=== PATIENT | male | born 1960 | race Caucasian/White ===

== ENCOUNTER 2021-01-14 08:48 | Emergency (ER) | payer OTHER ==
[~2021-01-14] VITALS: Ht 175.3 cm; Wt 81.8 kg
[2021-01-14] MEDS ORDERED: AMLO10TA55 PO (08:53)
[2021-01-14] MEDS ORDERED: FLUO-176 PO (08:53)
[2021-01-14] MEDS ORDERED: LAMO200T10 PO (08:53)
[2021-01-14] MEDS ORDERED: CHOL200016 PO (08:53)
[2021-01-14] MEDS ORDERED: FLUO20CA36 PO (08:53)
[2021-01-14 09:01] VITALS: BP 112/80
[2021-01-14] MEDS ORDERED: DOXYCYCLINE HYCLATE 100 MG TABLET PO ONE (10:30)
[2021-01-14] MEDS ORDERED: LIDOCAINE 1% 10 ML VIAL SQ ONE (10:30)
[2021-01-14] MEDS ORDERED: ACETAMINOPHEN 500 MG TABLET PO ONE (10:30)
[2021-01-14] MEDS ORDERED: BACITRACIN 0.9 GM PACKET OINTMENT TP ONE (10:30)
== END 2021-01-14 11:26 | disposition home or self-care (01) ==
LOC: EMS 08:51
DX: L60.0 Ingrowing nail (principal); I10 Essential (primary) hypertension; F32.9 Major depressive disorder, single episode, unspecified; Z79.899 Other long term (current) drug therapy
CPT/HCPCS: 11730; 99283; J3490